=== PATIENT | female | born 1960 | race Caucasian/White ===

== ENCOUNTER → 2018-02-05 | Outpatient (CLI) | payer OTHER ==
--- NOTE | ~2018-02-05 | PATH ---
[facility] [place] [address] PATHOLOGY RPT PROCEDURE Name: GEORGE HATFIELD Room #: REG [facility] M..#: [id number] Admission: 02/05/18 Date of : 64 Discharge: Report #: [id number] Path Case #: [id number] [facility] Accession Number: [id number] . 01 Material submitted: . PART A: LEFT BREAST MASS 2:00 PART B: 12:00 . 01 Clinical history: . Multiple masses upper outer left breast . 02 Diagnosis: A. Breast, left breast mass 2:00, ultrasound guided needle core biopsy; - INVASIVE MODERATELY DIFFERENTIATED DUCTAL ADENOCARCINOMA, ERIK GRADE 2 MEASURING 1.6CM IN GREATEST DIMENSION IN A SINGLE CORE IN CONTIGUOUS LENGTH. . B. Breast, left breast mass 12:00, ultrasound guided needle core biopsy: - INVASIVE WEEL-DIFFERENTIATED DUCTAL ADENO CARCINOMA, ERIK GRADE 1 MEASURING 1.5 CM IN GREATEST DIMENSION IN A SINGLE CORE IN CONTIGOUS LENGTH. - CRIBRIFORM TYPE DUCTAL CARCINOMA IN SITU, INTERMEDIATE GRADE ASSOCIATED WITH COARSE CALCIFICATIONS PRESENT IN THE BACKGROUND. . (IUV:chip mixer; 02/06/2018) MBR/02/07/2018 . 02 Comment: Both samples show an invasive ductal carcinoma. 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 The tumor sampled as left breast mass 12:00, on the other hand shows an invasive moderately differentiated ductal adenocarcinoma with more solid tumor and only focal mucin formation. The left breast mass at 2:00 shows a well-differentiated ductal carcinoma with a tubular formation at a score of 2, nuclei score of 2, and mitosis at a score of 1. On the other hand, the left breast mass at 12:00 shows a moderately differentiated ductal carcinoma with a tubular formation with a score of 3, nuclei with a score of 2, and mitoses with a score of 1. For this reason a chemical sales representative block from both the biopsy tissues is sent for image analysis (ER, OK, Ki-67, and HER2/CINDI). Please refer to a separate report to follow. . Operational Risk Consultant slides of this case are co-reviewed by Dr. Grzegorz Macedo who concurs with my diagnosis. Findings of this case are telephoned to Ms. Liana Hayward (breast center) at approximately 2:15 p.m. on 02/06/18. . (IUV:chip mixer; 02/06/2018) [place] [address] PATHOLOGY RPT PROCEDURE Name: GEORGE HATFIELD Room #: REG CLI Lloyd#: [id number] Admission: 02/05/18 Date of : 64 Discharge: Report #: [id number] Path Case #: [id number] . 02 Addendum: . Special studies report received from [facility], [address] [place] [address], [address], [place], [address], on case [id number], labeled with their number [id number], dated 02/10/2018. . Breast/Prognostic Marker Analysis . Specimen Site: Breast, - Breast Cancer Specimen ID #: [id number] . ER (Estrogen Receptor) Present/Positive Percent: 95.00% Analysis: Manual Comments: Staining Intensity: Moderate. . OK (Progesterone Receptor) Present/Positive Percent: 20.00% Analysis: Manual Comments: Staining Intensity: Weak to Moderate. . HER2 Equivocal Score: 2+ Analysis: Manual . Ki-67 Borderline Proliferation Percent: 12.00% Analysis: Manual . . Specimen Site: Breast,- Breast Cancer Specimen ID #: [id number] . ER (Estrogen Receptor) Present/Positive Percent: 90.00% Analysis: Manual Comments: Staining Intensity: Moderate. . OK (Progesterone Receptor) Present/Positive Percent: 40.00% Analysis: Manual Comments: Staining Intensity: Weak to Moderate. [address] [address] PATHOLOGY RPT PROCEDURE Name: GEORGE HATFIELD Room #: REG CLI Lloyd#: [id number] Admission: 02/05/18 Date of : 64 Discharge: Report #: [id number] Path Case #: [id number] . HER2 Equivocal Score: 2+ Analysis: Manual . Ki-67 High Proliferation Percent: 25.00% Analysis: Manual . Time to Fixation (Cold Ischemic Time): A fix: 2 minutes B fix: 5 minutes Duration of Fixation: Not Provided Type of Fixative: 10% Neutral Buffered Formalin . Comments: Additional studies: Reflex HER2 by FISH will be reported separately for each block (A2 and B1). . at [facility]. José Luis Euceda MD Pathologist . . Methodology The HER2 Receptor protein expression is analyzed using the [place] HER2 rabbit monoclonal antibody (clone [id number]). This assay is used for diagnostic determination of the HER2 protein over-expression in paraffin embedded, formalin fixed breast cancer tissue on the [employer] Benchmark. The specimen is processed using a polymer detection system. The membrane staining of the tumor is determined either by manual score or image analysis. This antibody is intended for in vitro diagnostic use. The score is reported as per package insert; 0, 1+, 2+, and 3+. This test is used for clinical purposes. . A rabbit monoclonal antibody (clone SP1) that recognized the Estrogen Receptor is used to perform immunohistochemistry on routinely fixed (formalin) paraffin embedded tissue on the [place] Benchmark. The specimen is processed using a polymer detection system. The percentage of stained tumor nuclei is determined either manually or by image analysis. This test is intended for in vitro diagnostic use. This test is used for clinical purposes. . A rabbit monoclonal antibody (clone 1E2) that recognized the Progesterone Receptor is used to perform immunohistochemistry on routinely fixed (formalin) paraffin embedded tissue on the [place] Benchmark. The specimen is processed using a polymer detection system. The percentage of stained [facility] [address] [place] [address] PATHOLOGY RPT PROCEDURE Name: GEORGE HATFIELD Room #: REG CLI Lloyd#: [id number] Admission: 02/05/18 Date of : 64 Discharge: Report #: [id number] Path Case #: [id number] tumor nuclei is determined either manually or by image analysis. This test is intended for in vitro diagnostic use. This test is used for clinical purposes. . A rabbit monoclonal antibody (clone 30-9) that recognized Ki67 is used to perform immunohistochemistry on routinely fixed (formalin) paraffin embedded tissue on the [employer]. The specimen is processed using a polymer detection system. The percentage of stained tumor nuclei is determined either manually or by image analysis. This test is intended for in vitro diagnostic use. This test is used for clinical purposes. . Intended Use: This antibody is intended for in vitro diagnostic (IVD) use. HER2 (4B5) is a rabbit monoclonal antibody intended for the semi-quantitative detection of HER2 antigen in sections of formalin-fixed, paraffin embedded normal and neoplastic tissue. . This antibody is intended for in vitro diagnostic (IVD) use. Estrogen Receptor (ER) (SP1) is a rabbit monoclonal antibody (IgG) that is intended for the qualitative detection of estrogen receptor (ER) antigen in sections of formalin-fixed, paraffin-embedded tissue. ER is a rabbit monoclonal antibody that recognizes human estrogen receptor alpha. . This antibody is intended for in vitro diagnostic (IVD) use. Progesterone Receptor (OK) (1E2) is a rabbit monoclonal antibody (IgG) that is intended for the qualitative detection of progesterone receptor (OK) antigen in sections of formalin fixed, paraffin embedded tissue. OK is a rabbit monoclonal antibody that recognizes the A and B forms of the human progesterone receptor. . This antibody is intended for in vitro diagnostic (IVD) use. Ki-67 (30-9) is a rabbit monoclonal antibody (IgG) directed against C-terminal portion of Ki-67 antigen. Staining for Ki-67 can be used to aid in assessing the proliferative activity of normal and neoplastic tissue. Ki-67 is a nuclear protein expressed in proliferating cells. During the cell cycle, the Ki-67 antigen is present in the G1, S, G2 and M phase but is absent in the G0 (quiescent phase). . . Disclaimer This Test was performed by [employer] [facility] at [address], [address]. . [facility] is a business unit of [employer] a wholly-owned subsidiary of [employer]. . This assay has not been validated on decalcified tissues. Results should [address] [address] PATHOLOGY RPT PROCEDURE Name: HATFIELDGEORGE Room #: REG CL Lloyd#: [id number] Admission: 02/05/18 Date of : 64 Discharge: Report #: [id number] Path Case #: [id number] be interpreted with caution if this specimen was decalcified given the likelihood of false negativity on decalcified specimens. . Any image(s) that accompany this report is/are a chemical sales representative image(s) only and should not be used to render a diagnosis. . This interpretation is contingent on the specimen and the clinical information received. . For any special tests/stains performed, known positive cells or tissues are tested with each marker and examined to ensure positivity. Positive and negative internal controls, if present, react appropriately. . This analysis is an adjunct to the evaluation of the referring physician and does not represent a final diagnosis. . The immunohistochemistry tests performed at [facility] were validated on tissue fixed in 10% neutral buffered formalin. The performance characteristics of the tests performed on tissue processed in other fixatives is not known. . HER2 testing at [facility] is performed in compliance with the 2013 updated ASCO/CAP Clinical Practice Guidelines and Recommendations for HER2 testing in Breast Cancer. If the result is EQUIVOCAL (2+), it must be confirmed by an alternative assay such as FISH or Dual DELPHINE. REF: Jaspal HUMPHREY, et al. Recommendations for human epidermal growth factor receptor 2 testing in breast cancer: [place] Society of Clinical Oncology/College of [place] pathologists Clinical Practice Guideline Update. J Clin Oncol. 2013 Jan 02;31(31):6410-1021. . HER2 and ER/OK ASCO/CAP guidelines require fixation in neutral buffered formalin for a minimum of 6 and a maximum of 72 hours. Fixation times less than 6 hours may not adequately preserve cell proteins. Fixation times longer than 72 hours may cause excess cross-linking of proteins reducing the antigen available for staining. Either scenario can cause reduced staining; hence false negative results are possible and should be considered for these situations if the HER2 IHC score is less than 3+ or ER or OK is negative (no staining or <1% positive). It is recommended that specimens fixed longer than 72 hours with HER2 IHC scores less than 3+ be confirmed by HER2 FISH or Dual DELPHINE. The time from biopsy/excision to fixation in formalin (cold ischemic time) must be less than 1 hour. Time to fixation (cold ischemic time) greater than 1 hour should be interpreted with caution. HER2 testing, mainly HER2 by FISH, is particularly vulnerable since excessive cold ischemic time results in preferential loss of HER2 probe signals that may lead to false negative results. . SCORE STAINING PATTERN IN TUMOR CELLS INTERPRETATION RESULTS [facility] [address] [place] [address] PATHOLOGY RPT PROCEDURE Name: GEORGE HATFIELD Room #: REG CL [place].#: [id number] Admission: 02/05/18 Date of : 64 Discharge: Report #: [id number] Path Case #: [id number] 0 No staining observed or incomplete, faint membrane staining in less than or equal to 10% of tumor cells. Negative 1+ Incomplete, faint membrane staining in greater than 10% of tumor cells. Negative 2+ Incomplete and/or weak/moderate circumferential membrane staining in greater than 10% of the invasive tumor cells or complete, circumferential, intense alternative assay staining in less than or equal to 10% of invasive tumor cells. Equivocal* *Must be confirmed by alternative assay (IHC/FISH/Dual DELPHINE) 3+ Intense, complete membrane staining in greater than 10% of tumor cells. Positive . A complete copy of the report is on file. . Professional and Technical services performed by [facility] at [address] [place] [address]. . ([facility] 02/11/2018) . IZV/02/11/2018 Addendum Electronically Signed by Nan Prince MD, Pathologist . 02 Electronically signed: . Nan Prince MD, Pathologist NPI- [id number] . 01 Gross description: . A. Received in formalin labeled "George Hatfield, left breast 2:00," and additionally labeled on the requisition as "10 cm," are multiple needle cores of yellow-whitman fibrofatty tissue measuring 3.5 x 3.7 x 0.8 cm in aggregate dimensions. The tissue submitted in its entirety in cassette A1 through A4. The cold ischemic time is 5 minutes. The total formalin fixation time is 13 hours and 15 minutes. . . B. Received in formalin labeled "George Hatfield, left breast 12:00," and additionally labeled on the requisition as "8 cm," are multiple needle cores of yellow-whitman fibrofatty tissue measuring 3.4 x 4.7 x 0.9 cm in aggregate dimensions. The tissue submitted in its entirety in cassette B1 through B5. The cold ischemic time is 2 minutes. The total formalin fixation time is 13 hours and 8 minutes. (TSD; 02/05/2018) [address] [address] PATHOLOGY RPT PROCEDURE Name: GEORGE HATFIELD Room #: REG [facility].#: [id number] Admission: 02/05/18 Date of : 64 Discharge: Report #: [id number] Path Case #: [id number] TOB/TOB . 02 Pathologist provided ICD-10: C50.912, D05.12 . 02 CPT . 786513, 398336 Specimen Comment: A courtesy copy of this report has been sent to Specimen Comment: [phone]. Specimen Comment: Report sent to Performed at: [id number] [facility] [address], [place] [id number] MD Pino Vilchis MD Phone: [phone] Performed at: [address] [id number] MD Nan Prince MD Phone: [phone]
== END | disposition home or self-care (01) ==
LOC: ULTRA 08:50
DX: C50.412 Malignant neoplasm of upper-outer quadrant of left female breast (principal)

== ENCOUNTER → 2018-02-20 | Outpatient (CLI) | payer OTHER | LOC: MRI 10:00 | DX: N63.21 Unspecified lump in the left breast, upper outer quadrant (principal); N63.22 Unspecified lump in the left breast, upper inner quadrant; C50.912 Malignant neoplasm of unspecified site of left female breast; Z17.0 Estrogen receptor positive status [ER+] ==

== ENCOUNTER 2018-04-15 05:25 | Day surgery (SDC) | payer OTHER ==
[~2018-04-15] VITALS: Ht 157.5 cm; Wt 93.0 kg
[2018-04-15 06:41] LABS: HEMATOCRIT 42.7 % (37.0-47.0); HEMOGLOBIN 14.7 gm/dL (12.0-15.0)
[2018-04-15 08:07] VITALS: BP 158/88
--- NOTE | 2018-04-15 08:37 | EKG ---
[address] [place] [address] ELECTROCARDIOGRAM REPORT Name: GEORGE HATFIELD Room #: 150-3 [facility]#: [id number] Admission: 04/15/18 Attend Phys: Orion Canas MD, F Discharge: Date of : 64 Report #: [id number] THIS REPORT FOR: //name// [facility] Test Date: 2018-04-15 Test Time: 06:39:17 Pat Name: GEORGE HATFIELD Department: Room: 150 3 Gender: F Craft Coordinator: LE : 1960 Requested By: Orion Canas Order Number: [id number] MD: Luis Castaneda Measurements Intervals [place] Rate: 91 P: 53 IN: 148 QRS: 3 QRSD: 86 T: -15 QT: 346 QTc: 426 Interpretive Statements Sinus rhythm Nonspecific ST and T wave abnormality No previous ECG available for comparison Electronically Signed On 04-15-2018 8:37:18 DETONATOR ASSEMBLER by Luis Castaneda [email or web address] <ELECTRONICALLY SIGNED> By: Luis Castaneda MD, [facility] 04/15/18 0837 0639 8 Luis Castaneda MD, FACC /EPI
[2018-04-15 15:45] VITALS: BP 133/74
--- NOTE | 2018-04-15 18:45 | NUR ---
ASSUMED CARE AT 1600, SHIFT ASSESSMENT DONE, MEDS GIVEN. VSS. ON REGUALR DIET, TOLERATING WELL. DENIES ANY PAIN, RATES PAIN AT 1/10. GOT UOP AND WENT TO THE BATHROOM. WILL CONTINUE TO ASSESS AND ASSIST WITH ADLs NEEDED.
[2018-04-15 21:05] VITALS: BP 121/64
[2018-04-16 01:15] VITALS: BP 111/65
[2018-04-16 04:19] VITALS: BP 108/70
[2018-04-16 06:11] LABS: ABSOLUTE NEUTROPHILS 9.4 thou/uL (1.4-8.2); BASOPHILS 0.2 % (0.0-2.0); HEMATOCRIT 34.8 % (37.0-47.0); LYMPHOCYTES 21.8 % (24.0-44.0); MCH 26.7 pg (26.0-34.0); MCHC 32.4 g/dL (28.0-37.0); MCV 82.5 fL (80.0-100.0); MONOCYTES 7.5 % (1.0-8.0); PLATELET COUNT 261 thou/uL (150-400); POLYS 70.5 % (36.0-66.0); RBC 4.21 mil/uL (4.20-5.00); RDW 15.8 % (10.5-14.5); WBC 13.3 thou/uL (4.0-11.0)
[2018-04-16 06:14] LABS: HEMOGLOBIN 11.3 gm/dL (12.0-15.0)
[2018-04-16 06:18] LABS: CALCIUM 9.3 mg/dL (8.5-10.1)
[2018-04-16 07:30] VITALS: BP 110/65
--- NOTE | 2018-04-16 10:26 | NUR ---
ASSUMED CARE AT 0700, SHIFT ASSESSMENT DONE, MEDS GIVEN, VSS. DENIES PAIN, NAUSEA, VOMITING. TOLERATING DIET. UP TO THE BATHROOM. SCDs ON. WILL CONTINUE TO ASSESS AND ASSIST WITH ADLs NEEDED. DISCHARGE ORDERS RECEIVED, AWAITING FOR THE PHYISICAN TO ROUND.
[2018-04-16 11:44] VITALS: BP 110/65
[2018-04-16] MEDS ORDERED: NORCO 5-325 TA1 EACH PO (12:40)
[2018-04-16] MEDS ORDERED: NEURONTIN 300300 M1 PO (12:40)
[2018-04-16] MEDS ORDERED: SENNA8.6 MG PO (12:40)
--- NOTE | 2018-04-16 14:27 | NUR ---
DISCHAGE ORDERS RECEIVED, SCRIPTS AND DRESSING SUPPLIES GIVEN. PERIPHERAL IV WAS TAKEN OUT. LEFT WITH VOLUNTEER STAFF.
--- NOTE | 2018-04-16 15:39 | NUR ---
PT ADMITTED RELATED TO DS 04/15 MASTECTOMY. CM MET WITH PT AND SPOUSE AT BEDSIDE THIS DAY. PT IS A&O X4. CM ROLE INTRODUCED. PT INDICATED SHE LIVES IN A HOUSE WITH HER SPOUSE WITH 2 STEPS TO ENTER AND NO STEPS INSIDE. PT INDICATED SHE IS GETTING A LIFT CHAIR. PT'S SPOUSE WILL BE DOING LAUNDRY IN BASEMENT. PT INDICTED NO NEEDS UPON DC. NO CM INTERVENTION INDICATED. CASE CLOSED.
--- NOTE | 2018-04-17 15:05 | O ---
[facility] [place] [address] OPERATIVE REPORT Name: GEORGE HATFIELD Room #: DEP [facility]..#: [id number] Admission: 04/15/18 Attend Phys: Orion Canas MD, F Discharge: 04/16/18 Date of : 64 Report #: [id number] THIS REPORT FOR: //name// CC: Jovany Canas MD DATE OF SERVICE: 04/15/2018 SURGEON: Orion Canas MD. SHEARING SHED HAND: William Falk DO. PREOPERATIVE DIAGNOSIS: Left breast cancer. POSTOPERATIVE DIAGNOSIS: Left breast cancer. PROCEDURE: 1. Left total mastectomy with left axillary sentinel lymph node biopsy. 2. Prophylactic right total mastectomy. ANESTHESIA: General endotracheal anesthesia and local anesthetic. ESTIMATED BLOOD LOSS: 200 mL. SPECIMEN: [place] lymph nodes x 2, left breast, right breast. COMPLICATIONS: None appreciated. INDICATIONS FOR PROCEDURE: This is a 57-year-old female patient of Dr. Ashkan Obrien, referred by Dr. Maurilio Gudino. The patient underwent an annual screening mammogram this past December, which was found to be normal. She does perform monthly self-breast exams and noticed an inverted nipple in February. She saw Dr. Gudino soon thereafter and she underwent a left breast ultrasound. The following day, an ultrasound-guided vacuum-assisted biopsy of a left breast mass was performed. The mass was noted to be at the 2 o'clock position, 10 cm from the nipple with a diameter of 1.3 cm. The mass located at 12 o'clock position was 8 cm from the nipple with a maximal diameter at 1.2 cm. The mass at the 2 o'clock position was found to be an invasive moderately differentiated ductal adenocarcinoma measuring 1.6 cm in greatest dimension. The mass at the 12 o'clock position was an invasive well differentiated ductal adenocarcinoma measuring 1.5 cm in greatest diameter with associated DCIS. Both were found to be ER/CO positive. The patient was seen by Dr. Claudia Smith with [address] [address] OPERATIVE REPORT Name: GEORGE HATFIELD Room #: DEP [facility] M.R.#: [id number] Admission: 04/15/18 Attend Phys: Orion Canas MD, F Discharge: 04/16/18 Date of : 64 Report #: [id number] Medical Oncology as well as Dr. Jovany Chavira with Radiation Oncology and Dr. Jovany Bruno with Plastic Surgery. The patient's treatment plan was discussed at the breast cancer conference. A bilateral breast MRI showed the biopsy sites with masses that were difficult to discern and no appreciable lymphadenopathy on the MRI. The patient presents today for the above listed procedure. OPERATIVE FINDINGS: There were 2 left axillary sentinel lymph nodes, the first of which had a 10-second target count of 269 and the second with a target count of 612. Prior to making the incision, the 10-second target count was 218. Both nodes removed were blue in color in addition to the radioactivity that was identified. The left breast mass was not palpated or encountered during the dissection. There was no gross pathology identified with the right breast tissue. At the conclusion of the operation, sponge, needle, and instrument counts were correct. DESCRIPTION OF PROCEDURE IN DETAIL: After the risks, benefits, and expectations of the operation were discussed in detail with the patient, informed consent was obtained. The patient was identified in preoperative holding area. She had gone to Radiology for an injection of the radioactive tracer. She was identified in the preoperative holding area. She was given IV antibiotics as documented in the chart in line with SCIP metrics. She was then taken to the operating room and she was placed in the supine position. SCDs were placed on the patient's bilateral lower extremities and pneumatic compression was initiated. The patient was then given IV sedation and she was intubated without incident. Her left and right breasts were prepped and draped in the standard sterile fashion. A time-out was performed to identify the correct patient and procedure. The left sentinel lymph node biopsy was performed first. The Neoprobe device was used to identify the area of greatest activity. The planned incision was drawn out to follow the skin lines. Sharp #15 blade scalpel was used to make an incision. Electrocautery was used to dissect through the subcutaneous tissue into the axillary fat. The Neoprobe was used to routinely identify areas of activity. The first nodule that was encountered was also blue in color. The patient had been injected with 5 mL of Lymphazurin blue dye in the subdermal tissue around the nipple. This was divided in 4 equal volumes. The LigaSure energy device was used to transect the tissue around the lymph node. The lymph node was checked with the Neoprobe outside of the body with a 10-second target count of 269. The Neoprobe was then used to identify more activity in the axilla. The second sentinel lymph node was removed in a similar fashion using the LigaSure device. Ultimately, there was good hemostasis from this. The thoracodorsal or long thoracic nerves were not encountered. No further radioactivity was present within the axillary fat. [address] [address] OPERATIVE REPORT Name: GEORGE HATFIELD [id number] Admission: 04/15/18 Attend Phys: Orion Canas MD, F Discharge: 04/16/18 Date of : 64 Report #: [id number] Likewise, there was no further Lymphazurin blue dye seen. In addition, there were no significantly firm lymph nodes. The wound was packed with normal saline on a gauze. The mastectomies were undertaken next. The left mastectomy was performed first. The planned incision was drawn out with a skin marker. Symmetrical markings were attempted on the right side as well. A sharp #10 scalpel was then used to make the elliptical incision around the nipple, starting medially at the sternum and extending laterally. The incision was made above and below the nipple. Electrocautery was then used to dissect through the subcutaneous tissue. The breast tissue was encountered. The superior flap was elevated first with appropriate traction and electrocautery to dissect the left breast tissue free. This was done circumferentially up to the level of the clavicle, medially to the sternum, inferiorly to the inframammary fold, and laterally beyond the axillary fat pad. The breast tissue was then dissected off the left pectoralis fascia. The breast mass was not encountered. The tissue was dissected off the fascia and it was removed to be sent for specimen. Bleeding points were made hemostatic with electrocautery. A 19-Indonesian NADYA drain was then placed after being brought out through a stab wound in the lateral inframammary fold. The drain was secured to the skin with a 2-0 nylon suture. After ensuring final hemostasis, the left breast was closed with a running 3-0 Vicryl suture to approximate the subdermal tissue. A running 4-0 Monocryl subcuticular suture was used to close the skin. Mastisol and half-inch Steri-Strips were then applied. The right total mastectomy was undertaken next. The incision was made with #10 blade scalpel. Electrocautery was then used to dissect through the subcutaneous tissue down to the breast tissue. Superior and inferior flaps were created in a similar fashion with appropriate traction and good hemostasis. Dissection was carried up to the level of the clavicle, medially to the sternum, inferiorly to the inframammary fold and laterally beyond the pectoralis major muscle. The breast tissue was then dissected off the pectoralis muscle with electrocautery leaving the fascia in place. The breast tissue was removed to be sent for specimen. No malignant features were present. After ensuring final hemostasis, the 19-Indonesian NADYA drain was brought out through the lateral inframammary fold. The drain was secured to the skin with a 2-0 nylon suture. After positioning, the wound was closed in layers. The subdermal tissue was approximated with running 3-0 Vicryl suture. A running 4-0 Monocryl subcuticular suture was then used to close the skin. Mastisol and half-inch Steri-Strips were applied. The wounds were dressed with Xeroform, 4 x 4s, and an ABD pad. The left axillary wound was closed in a similar fashion with a running 3-0 Vicryl suture and a running 4-0 Monocryl subcuticular suture. The patient tolerated the procedure well. She was awakened, extubated, and [address] [address] OPERATIVE REPORT Name: GEORGE HATFIELD Room #: DEP [facility]..#: [id number] Admission: 04/15/18 Attend Phys: Orion Canas MD, F Discharge: 04/16/18 Date of : 64 Report #: [id number] taken to recovery room in stable condition with no apparent intraoperative complications. <ELECTRONICALLY SIGNED> By: Orion Canas MD, FACS 04/17/18 1505 [id number] Orion Canas MD, FACS /nt
--- NOTE | 2018-04-21 10:07 | PATH ---
[facility] [place] [address] PATHOLOGY RPT PROCEDURE Name: GEORGE HATFIELD Room #: DEP [facility] M.R.#: [id number] Admission: 04/15/18 Date of : 64 Discharge: 04/16/18 Report #: [id number] Path Case #: [id number] Accession Number: [id number] . 01 Material submitted: . PART A: LEFT AXILLARY SENTINEL LYMPH NODE #1 PART B: LEFT AXILLARY SENTINEL LYMPH NODE #2 PART C: RIGHT BREAST PART D: LEFT BREAST . 01 Clinical history: . Left breast cancer . 02 Diagnosis: A. Lymph node (1), left axillary sentinel lymph node #1, biopsy: - MACROMETASTASES MEASURING APPROXIMATELY 3 MM IN GREATEST DIMENSION. (1/) - FOCAL EXTRACAPSULARLY EXTENSION PRESENT MEASURING LESS THAN 0.2 MM BEYOND CAPSULE. - EXTENSIVE LYMPHVASCULAR SPACE INVASION PRESENT WITHIN THE SURROUNDING FIBROADIPOSE TISSUE. . B. Lymph node (1), left axillary sentinel lymph node #2, biopsy: - MICROMETASTASES MEASURING 1 MM IN GREATEST DIMENSION. (N1mi) - NO EXTRACAPSULARLY EXTENSION PRESENT. . C. Breast, right breast, mastectomy: - Benign breast tissue with nonproliferative fibrocystic changes. - Skin and nipple with no diagnostic abnormalities. . D. Breast, left breast, mastectomy: - TWO SEPARATE FOCI OF INVASIVE DUCTAL CARCINOMA, WITH MICROPAPILLARY FEATURES PRESENT AT 12:00 AND 2:00 BY 5 MM OF DISTANCE. - FOCI OF INVASIVE CARCINOMA MEASURE 5.0 CM AND 1.0 CM EACH. - Margins of resection free of malignancy; closest deep margin is less than 1 mm away. (IUV:pit 04/18/2018) . . Surgical Pathology Cancer Case Summary . Protocol posting date: March 2017 . INVASIVE CARCINOMA OF THE BREAST: . . Specimen Identification . [address] [address] PATHOLOGY RPT PROCEDURE Name: HATFIELDGEORGE Room #: DEP [facility]..#: [id number] Admission: 04/15/18 Date of : 64 Discharge: 04/16/18 Report #: [id number] Path Case #: [id number] Procedure ___ Total mastectomy . Specimen Laterality ___ Left . Tumor Site: Invasive Carcinoma ___ Position: 12:00 and 2:00 clock, Upper outer quadrant . Tumor Size ___ 5.0 cm and 1.0 cm . Histologic Type ___ Invasive ductal carcinoma with micropapillary features . Histologic Grade (Kai Histologic Score) . ___ [place] Grade II/III . Glandular (Acinar)/Tubular Differentiation ___ Score 3 (<10% of tumor area forming glandular/tubular structures) . Nuclear Pleomorphism ___ Score 2 (cells larger than normal with open vesicular nuclei, visible nucleoli, and moderate variability in both size and shape) . Mitotic Rate ___ Score 1 (=3 mitoses per mm2) . Tumor Focality ___ Two foci with less than 5mm distance between the foci . Ductal Carcinoma In Situ (DCIS) . ___ Cribriform type, intermediate nuclear grade comprising less than 10 percent of the entire tumor . Tumor Extension . Skin . ___ None . Nipple . ___ None . Margins [address] [address] PATHOLOGY RPT PROCEDURE Name: HATFIELDGEORGE Room #: DEP [facility]..#: [id number] Admission: 04/15/18 Date of : 64 Discharge: 04/16/18 Report #: [id number] Path Case #: [id number] . Invasive Carcinoma Margins . ___ Uninvolved by invasive carcinoma . Distance from closest margin (millimeters): less than 1 mm . Specify closest margin: posterior/deep . DCIS Margins . ___ Uninvolved by invasive carcinoma . Distance from closest margin (millimeters): less than 1 mm . Specify closest margin: posterior/deep . Regional Lymph Nodes . ___ Involved by tumor cells . Number of Lymph Nodes Examined: 2 . Number of Sarah Nodes Examined: 2 . Number of Lymph Nodes with Macrometastases (>2 mm): 1 . Number of Lymph Nodes with Micrometastases (>0.2 mm to 2 mm and/or >200 cells): 1 (measuring 1mm) . Size of Largest Metastatic Deposit: 3 mm . Extranodal Extension: Identified, extends 0.2 mm beyond capsule . Treatment Effect . ___ No known presurgical therapy . . Lymphovascular Invasion ___ Present . Dermal Lymphovascular Invasion . ___ Not identified . . Pathologic Stage Classification (pTNM, AJCC 8th Edition) [facility] [address] [place] [address] PATHOLOGY RPT PROCEDURE Name: GEORGE HATFIELD Room #: DEP [facility]..#: [id number] Admission: 04/15/18 Date of : 64 Discharge: 04/16/18 Report #: [id number] Path Case #: [id number] Note: Reporting of pT, pN, and (when applicable) pM categories is based on information available to the pathologist at the time the report is issued. . TNM Descriptors . ___ m (multiple foci of invasive carcinoma) . . Primary Tumor (Invasive Carcinoma) (pT) ___ pT3:Tumor >50 mm in greatest dimension . . Category (pN) . Modifier . ___ (sn):Sarah node(s) evaluated. . . ___ pN1a: Metastases in 1 to 3 axillary lymph nodes, at least 1 metastasis larger than 2.0 mm . . Distant Metastasis (pM) (required only if confirmed pathologically in this case) ___ pMX: Unknown . (IUV: 04/18/2018) QTP/04/18/2018 . 02 Comment: The block D5 is sent for HER-2 staining due to the fact that the biopsy showed equivocal findings on both IHC staining and then FISH analysis. The prior biopsy ([id number]) was sent for ER, AK, HER-2, and Ki-67. Please refer to a separate report for complete details. . AE1/AE3 performed on block A1 confirms the macrometastases. AE1/AE3 performed on block B1 confirms the micrometastases. . Dr. Siomara Rogers has seen traffic representative slides of the lymph nodes and concurs with the diagnosis rendered. Findings of this case are discussed with Dr. Primo Canas at approximately 1:30 pm on 04/18/2018. (IUV:pit 04/18/2018) . 02 Electronically signed: . Nan Prince MD, Pathologist NPI- [id number] [place] [address] PATHOLOGY RPT PROCEDURE Name: GEORGE HATFIELD Room #: DEP [facility] Lloyd#: [id number] Admission: 04/15/18 Date of : 64 Discharge: 04/16/18 Report #: [id number] Path Case #: [id number] . 01 Gross description: . Negrito The specimen is received in formalin, labeled "George Hatfield, left axillary sentinel lymph node #1, blue yes, count 269". Received is a segment of yellow-worley lobulated tissue measuring 1.7 x 1.4 x 1.0 cm in greatest dimensions. Dissection and palpation of the specimen reveals a single lymph node measuring 1.0 cm in maximum dimensions. The specimen is bisected and entirely submitted in cassette A1. Immunohistochemical stains are ordered. . B. The specimen is received in formalin, labeled "George Hatfield, left axillary sentinel lymph node #2, blue yes, count 612". Received is a segment of yellow-worley lobulated tissue measuring 1.3 x 0.9 x 0.4 cm in greatest dimensions. Sectioning reveals a single lymph node measuring 0.5 cm in maximum dimensions. The lymph node is bisected and entirely submitted in cassette B1. Immunohistochemical stains are ordered. . C. The specimen is received in formalin, labeled "George Hatfield, right breast". Received is a 1007 g unoriented mastectomy specimen measuring 21.8 x 17.5 x 7.9 cm in greatest dimensions. There is an attached ellipse of skin measuring 20.6 x 9.5 cm with a centrally located, slightly everted nipple and areolar complex, measuring 1.2 x 1.2 and 6.3 x 4.8 cm, respectively. The specimen is inked as follows: Anterior-blue, posterior-black. Sectioning reveals bright yellow, fibrofatty cut surfaces throughout with less than 1% fibrous tissue present. No distinct nodules or lesions are noted grossly. The quadrants are designated in a clockwise fashion and the specimen is submitted representatively as follows: . C1 perpendicular section through nipple C2 quadrant 1 C3 quadrant 2 C4 quadrant 3 C5 quadrant 4 C6 central aspect the specimen posterior to nipple. . The cold ischemic time is 5 minutes. The total formalin fixation time is 59 hours and 16 minutes. . D. The specimen is received in formalin, labeled "George Hatfield, left breast". Received is a 1377 g unoriented mastectomy specimen measuring 24.8 x 19.8 x 9.5 cm in greatest dimensions. There is an attached ellipse of skin measuring 24.1 x 9.0 cm with a centrally located flat nipple and areolar complex, measuring 1.2 x 1.2 and 6.0 x 5.1 cm, respectively. The specimen is inked as follows: Anterior-blue, posterior-black. Sectioning reveals a previous biopsy site measuring 0.9 x 0.8 x 0.6 cm in greatest dimensions, which is 2.8 cm from the closest margin (posterior). This quadrant will be designated as quadrant 1[place] [address] PATHOLOGY RPT PROCEDURE Name: GEORGE HATFIELD Room #: DEP [facility].#: [id number] Admission: 04/15/18 Date of : 64 Discharge: 04/16/18 Report #: [id number] Path Case #: [id number] designated in a clockwise fashion. Surrounding this biopsy site and extending outward is a poorly circumscribed, firm pink-worley to white-worley mass measuring 5.0 x 3.2 x 3.0 cm in greatest dimensions, which grossly abuts the posterior margin. This mass extends from quadrant 1 down along the junction between quadrant 1 and quadrant 4. Immediately adjacent to this mass, there is a second possible mass which is pink-worley to white-worley and firm measuring 1.0 x 1.0 x 0.8 cm, which is 2.3 cm from the closest margin (anterior). The distance between mass 1 and mass 2 is approximately 0.5 cm. This second mass is located along the junction between quadrant 1 and quadrant 2. Further sectioning through the specimen reveals a single unilocular cystic structure adjacent to possible mass 2 measuring 0.2 cm filled with thick amorphous material. The remainder of the specimen is comprised of fibrofatty tissue, with the fibrous tissue encompassing less than 1% of the specimen. There is a moderate amount of residual blue dye at the central aspect of the specimen. . Also received within the specimen container is an additional segment of yellow-worley fibrofatty tissue measuring 9.3 x 5.1 x 2.6 cm in greatest dimensions weighing 12 g. The specimen is inked blue. Sectioning reveals bright yellow, lobulated cut surfaces throughout with no grossly distinct nodules or lesions. The specimen is submitted representatively as follows: . D1 perpendicular section through nipple D2-D4 entire previous biopsy site in quadrant 1 D5 traffic representative section of mass surrounding previous biopsy site in quadrant 1 to show relationship with posterior margin D6-D8 additional traffic representative sections of mass surrounding previous biopsy site in quadrant 1 D9-D12 entire possible second mass adjacent to the primary mass and biopsy site between quadrants 1 and 2 D13 cystic structure adjacent to possible second mass D14 quadrant 1 D15 quadrant 2 D16 quadrant 3 D17 quadrant 4 D18-D19 traffic representative sections from separately submitted segment. . The cold ischemic time is 19 minutes. The total formalin fixation time is 58 hours and 55 minutes. (CAA; 04/17/2018) QAC/QAC . 02 Pathologist provided ICD-10: C50.912, C77.3 . 02 CPT . [address] [address] PATHOLOGY RPT PROCEDURE Name: GEORGE HATFIELD Room #: DEP [facility] M.R.#: [id number] Admission: 04/15/18 Date of : 64 Discharge: 04/16/18 Report #: [id number] Path Case #: [id number] Specimen Comment: A courtesy copy of this report has been sent to Specimen Comment: [phone], . Specimen Comment: Report sent to / DR ARMIJO Specimen Comment: A duplicate report has been generated due to demographic updates. Performed at: [address] [facility], [place] [id number] MD Pino Vilchis MD Phone: [phone] Performed at: [address] [facility] [id number] MD Nan Prince MD Phone: [phone]
== END 2018-04-16 14:22 | disposition home or self-care (01) ==
LOC: TBA 05:25 → OR 05:25 → NUC 14:40 → EDSTATUS 14:44 → OR 14:46 → 4E 16:00 → ENTRNSPT 04-16 14:14 → EDTRNSPTSTS 04-16 14:17 → OR 04-16 14:22
PROVIDERS: Surgery
DX: C50.412 Malignant neoplasm of upper-outer quadrant of left female breast (principal); N64.89 Other specified disorders of breast; Z98.890 Other specified postprocedural states; Z96.651 Presence of right artificial knee joint; Z88.2 Allergy status to sulfonamides; Z79.899 Other long term (current) drug therapy
CPT/HCPCS: 10783; 50010; 50101; 50417; 50942; 56524; 56525; 56526; 62110; 62900; 70005